=== PATIENT | female | born 1975 | race Caucasian/White ===

== ENCOUNTER 2024-01-30 17:09 | Emergency (ER) | payer OTHER, SELFPAY ==
[2024-01-30 17:14] VITALS: BP 137/95; PULSE 91; RESP 17; TEMP 36.5; O2SAT 98; BMI 19.5
--- NOTE | 2024-01-30 17:35 | CTR_ITS ---
PROCEDURE INFORMATION: Exam: CT Neck With Contrast Exam date and time: 01/30/2024 6:08 PM Age: 48 years old Clinical indication: Other: Right facial/jaw pain and swelling; Additional info: Facial/neck swelling worsening over past week, on abx TECHNIQUE: Imaging protocol: Computed tomography of the neck with contrast. Radiation optimization: All CT scans at this facility use at least one of these dose optimization techniques: automated exposure control; mA and/or kV adjustment per patient size (includes targeted exams where dose is matched to clinical indication); or iterative reconstruction. Contrast material: OMNI 350; Contrast volume: 80 ml; Contrast route: INTRAVENOUS (IV); COMPARISON: No relevant prior studies available. RADIATION DOSE METRICS: Total DLP (mGy-cm): 259.82 FINDINGS: Pharynx: Unremarkable. No significant tonsillar enlargement. Larynx: Unremarkable. Epiglottis is normal. Prevertebral and retropharyngeal spaces: Unremarkable. Salivary glands: Right submandibular gland is enlarged with heterogeneous enhancement. There is adjacent peripherally enhancing complex fluid collection measuring 2.7 x 2.3 cm in the craniocaudad/transverse dimensions consistent with an abscess formation. The abscess formation and adjacent soft tissue inflammatory changes cannot be differentiated from the right sternocleidomastoid muscle. There is overlying soft tissue cellulitis. Thyroid: Normal. No enlarged or calcified nodules. Lymph nodes: There is lymphadenopathy in the right neck soft tissues. Trachea: Visualized trachea is unremarkable. Lungs: Unremarkable as visualized. Bones/joints: Unremarkable. No acute fracture. Soft tissues: See Salivary glands finding. CT/CT neck w con* [id number] IMPRESSION: Right sialadenitis with an adjacent abscess formation, soft tissue cellulitis, and myositis involving the right sternocleidomastoid muscle.
--- NOTE | 2024-01-30 17:40 | ED_ITS ---
Documented by User: APRIL Scruggs 01/30/24 20:45 HPI - Dental/Oral 2 General: Chief complaint: Dental/Oral Stated complaint: tooth pain Time Seen by Provider: 01/30/24 17:23 Source: patient Mode of arrival: ambulatory Limitations: no limitations History of Present Illness: Patient is a 48-year-old female presenting to the emergency department complaining of facial/neck swelling worsening over the past week. Patient notes she was prescribed amoxicillin for presumed dental abscess, however her pain and swelling has only gotten worse. The pain seems to be extending down into the neck, and she now reports some difficulty swallowing as well as her tongue going numb. She notes she has a follow-up with her dentist next week, but due to her worsening symptoms she presented for evaluation. She denies any fevers, respiratory distress, chest pain, or any other symptoms at this time. Patient notes she has been taking her antibiotic as prescribed. Associated symptoms: Denies ear or mastoid pain or fever(s) Review of Systems 2 General: Reports: 10 or more systems reviewed and unremarkable except in HPI and below Const: Denies: fever(s), chills or fatigue Eyes: Denies: change in vision ENMT: Reports: other (Facial/neck swelling and pain, trouble swallowing, tongue numbness); Denies: ear or mastoid pain or nasal discharge Card: Denies: chest pain, palpitations, swelling of feet/ankles or lightheadedness Resp: Denies: dyspnea, productive cough or wheezing GI: Denies: abdominal pain, nausea, vomiting, diarrhea or constipation : Denies: flank pain, difficulty voiding, dysuria or urinary frequency Musc: Denies: neck pain, back pain or joint pain Skin/Breast: Denies: rash Neuro: Denies: headache(s), numbness in extremities or weakness in extremities Physical Exam 2 Const: COMMON NORMALS: patient oriented x3 and no limitations GENERAL APPEARANCE: cooperative, well developed, in distress (From pain) and anxious ORIENTATION/CONSCIOUSNESS: Yes awake, Yes oriented to person, Yes oriented to place and Yes oriented to time HENMT: COMMON NORMALS: normocephalic, atraumatic and hearing grossly normal bilaterally HEAD & SCALP: normocephalic and atraumatic OTHER: Moderate amount of swelling to the right maxillary/mandibular region. This area is exquisitely tender to palpation. Oral examination shows good dentition with no caries or overtly abnormal gingival changes. Eye: COMMON NORMALS: Equal, round and reactive pupils present, EOMs intact bilaterally and conjunctivae normal CONJUNCTIVA: Yes conjunctivae normal P UPIL: Yes Equal, round and reactive pupils present Neck/C-Spine: COMMON NORMALS: no JVD OTHER: Range of motion of the neck limited due to pain. Soft tissue swelling noted to the lateral right neck that is also tender to palpation. No obvious overlying skin changes. No lymphadenopathy. Resp: COMMON NORMALS: normal respiratory effort, No retractions, No use of accessory muscles and clear to auscultation bilaterally AUSCULTATION: clear to auscultation bilaterally Cardio: COMMON NORMALS: no JVD, regular rate, regular rhythm, No clicks present (Cardio), No murmurs present (Cardio) and No rub (Cardio) RATE: r egular rate RHYTHM: regular rhythm Extremity: COMMON NORMALS: normal to inspection, full ROM and capillary refill normal Neuro: COMMON NORMALS: patient oriented x3, moves all extremities, no focal motor deficits and no sensory deficits noted SENSORIUM/ORIENTATION: Yes oriented to person, Yes oriented to place and Yes oriented to time Psych: COMMON NORMALS: mental status grossly normal and Normal thought process present THOUGHT PROCESS: Normal thought process present Skin: COMMON NORMALS: no rashes or lesions noted GENERAL SKIN EXAM: no rashes or lesions noted Course 2 Vital Signs: Vital signs: Vital Signs Temperature 97.7 F 01/30/24 17:14 Pulse Rate 88 01/30/24 20:35 Respiratory Rate 16 01/30/24 20:35 Blood Pressure 143/96 01/30/24 20:35 Pulse Oximetry 95 01/30/24 20:35 Oxygen Delivery Me thod Room Air 01/30/24 20:35 MDM - Dental/Oral Medical Decision Making Patient seen and evaluated in the emergency department due to worsening pain and swelling to the right face with extension into the neck, associated with trouble swallowing and numbness to her posterior tongue. On arrival vitals normal, she has remained stable throughout her ED course. On exam she is exquisitely tender to the touch on the right maxillary and mandibular region, along with the distribution of her SCM on the right side. These areas are also edematous. Oral examination essentially impossible due to patient's trismus, and she states she had decreased intake due to this. CBC CMP unremarkable, no elevation in white count. CT of the neck demonstrated right sialadenitis with abscess, associated with some soft tissue cellulitis and SCM myositis. Patient's pain has been controlled with 2 doses of IV morphine. I spoke with our ENT on-call, who recommends transfer patient as he is unable to drain it at this time. Spoke with oral surgeon at [facility], he states he will consult the patient if patient is excepted to hospitalist services. Patient is excepted under the services of Dr. Casillas and will transfer via ambulance. Patient informed of this and agrees with plan. Lab Data I reviewed the patient's lab results. 01/30/24 18:35 01/30/24 18:[address] 01/30/24 17:35 IMPRESSION: Right sialadenitis with an adjacent abscess formation, soft tissue cellulitis, and myositis involving the right sternocleidomastoid muscle. Laboratory Results WBC 10.27 10^3/uL (3.29-11.43) 01/30/24 18:35 RBC 3.87 10^6/uL (3.85-5.65) 01/30/24 18:35 Hgb 11.90 g/dL (11.27-16.99) 01/30/24 18:35 Hct 34.4 % (36-47) L 01/30/24 18:35 MCV 88.9 fl (85-98) 01/30/24 18:35 MCH 30.7 pg (27-33) 01/30/24 18:35 MCHC 34.6 g/dL (30-55) 01/30/24 18:35 RDW 11.7 % (12.1-15.1) L 01/30/24 18:35 Plt Count 215 10^3/cmm (157-399) 01/30/24 18:35 MPV 9.7 fL (7.4-10.4) 01/30/24 18:35 Neut % (Auto) 78.6 % 01/30/24 18:35 Lymph % (Auto) 13.6 % 01/30/24 18:35 [place] % (Auto) 6.7 % 01/30/24 18:35 Eos % (Auto) 0.6 % 01/30/24 18:35 Baso % (Auto) 0.2 % 01/30/24 18:35 Neut # (Auto) 8.07 10^3/uL (1.8-7.7) H 01/30/24 18:35 Lymph # (Auto) 1.4 10^3/uL (0.8-4.8) 01/30/24 18:35 [place] # (Auto) 0.7 10^3/uL (0.2-0.9) 01/30/24 18:35 Eos # (Auto) 0.1 10^3/uL (0.0-0.8) 01/30/24 18:35 Baso # (Auto) 0.0 10^3/uL (0.0-0.1) 01/30/24 18:35 Nucleated RBC % (auto) 0 % 01/30/24 18:35 Nucleated RBCs # 0.0 /100WBC 01/30/24 18:35 Sodium 136 mmol/L (136-145) 01/30/24 18:35 Potassium 3.6 mmol/L (3.5-5.1) 01/30/24 18:35 Chloride 93 mmol/L (98-107) L 01/30/24 18:35 Carbon Dioxide 29 mmol/L (22-29) 01/30/24 18:35 Anion Gap 17.6 (5-19) 01/30/24 18:35 BUN 6 mg/dL (6-20) 01/30/24 18:35 Creatinine 0.5 mg/dL (0.5-0.9) 01/30/24 18:35 GFR Calculation 131.1 mL/min (90-130) H 01/30/24 18:35 Glucose 100 mg/dL (65-115) 01/30/24 18:35 Calculated Osmolality 280 mOsm/kg (285-295) L 01/30/24 18:35 Calcium 9.4 mg/dL (8.5-10.5) 01/30/24 18:35 Total Bilirubin 0.4 mg/dL (0.15-1.2) 01/30/24 18:35 AST 10 U/L (0-32) 01/30/24 18:35 ALT 8 U/L (0-33) 01/30/24 18:35 Alkaline Phosphatase 105 U/L (35-105) 01/30/24 18:35 Total Protein 7.4 g/dL (6.6-8.7) 01/30/24 18:35 Albumin 3.8 g/dL (3.5-5.2) 01/30/24 18:35 Globulin 3.6 g/dL (1.3-4.6) 01/30/24 18:35 All radiology interpretation(s) finalized by discharge Discharge Plan Discharge Patient Disposition: Xfer Short-Term Hosp Clinical Impression: Facial abscess, Acute bacterial sialadenitis Myositis Qualifiers: Myositis type: infective Myositis location: unspecified site Qualified Code(s): M60.009 - Infective myositis, unspecified site Condition: Stable Coding Level of Care Code ED Outpatient Clerk for Chg Fwd Documented by User: Grayson Ng DO 02/05/24 14:16 HPI - Dental/Oral 2 General: Chief complaint: Dental/Oral Stated complaint: tooth pain Time Seen by Provider: 01/30/24 17:23 Course 2 Vital Signs: Vital signs: Vital Signs Temperature 97.7 F 01/30/24 17:14 Pulse Rate 88 01/30/24 20:35 Respiratory Rate 16 01/30/24 20:35 Blood Pressure 143/96 01/30/24 20:35 Pulse Oximetry 95 01/30/24 20:35 Oxygen Delivery Me thod Room Air 01/30/24 20:35 MDM - Dental/Oral Medical Decision Making Patient seen and evaluated in the emergency department due to worsening pain and swelling to the right face with extension into the neck, associated with trouble swallowing and numbness to her posterior tongue. On arrival vitals normal, she has remained stable throughout her ED course. On exam she is exquisitely tender to the touch on the right maxillary and mandibular region, along with the distribution of her SCM on the right side. These areas are also edematous. Oral examination essentially impossible due to patient's trismus, and she states she had decreased intake due to this. CBC CMP unremarkable, no elevation in white count. CT of the neck demonstrated right sialadenitis with abscess, associated with some soft tissue cellulitis and SCM myositis. Patient's pain has been controlled with 2 doses of IV morphine. I spoke with our ENT on-call, who recommends transfer patient as he is unable to drain it at this time. Spoke with oral surgeon at [facility], he states he will consult the patient if patient is excepted to hospitalist services. Patient is excepted under the services of Dr. Casillas and will transfer via ambulance. Patient informed of this and agrees with plan. Chart reviewed Lab Data 01/30/24 18:35 01/30/24 18:[address] 01/30/24 17:35 IMPRESSION: Right sialadenitis with an adjacent abscess formation, soft tissue cellulitis, and myositis involving the right sternocleidomastoid muscle. Laboratory Results WBC 10.27 10^3/uL (3.29-11.43) 01/30/24 18:35 RBC 3.87 10^6/uL (3.85-5.65) 01/30/24 18:35 Hgb 11.90 g/dL (11.27-16.99) 01/30/24 18:35 Hct 34.4 % (36-47) L 01/30/24 18:35 MCV 88.9 fl (85-98) 01/30/24 18:35 MCH 30.7 pg (27-33) 01/30/24 18:35 MCHC 34.6 g/dL (30-55) 01/30/24 18:35 RDW 11.7 % (12.1-15.1) L 01/30/24 18:35 Plt Count 215 10^3/cmm (157-399) 01/30/24 18:35 MPV 9.7 fL (7.4-10.4) 01/30/24 18:35 Neut % (Auto) 78.6 % 01/30/24 18:35 Lymph % (Auto) 13.6 % 01/30/24 18:35 [place] % (Auto) 6.7 % 01/30/24 18:35 Eos % (Auto) 0.6 % 01/30/24 18:35 Baso % (Auto) 0.2 % 01/30/24 18:35 Neut # (Auto) 8.07 10^3/uL (1.8-7.7) H 01/30/24 18:35 Lymph # (Auto) 1.4 10^3/uL (0.8-4.8) 01/30/24 18:35 [place] # (Auto) 0.7 10^3/uL (0.2-0.9) 01/30/24 18:35 Eos # (Auto) 0.1 10^3/uL (0.0-0.8) 01/30/24 18:35 Baso # (Auto) 0.0 10^3/uL (0.0-0.1) 01/30/24 18:35 Nucleated RBC % (auto) 0 % 01/30/24 18:35 Nucleated RBCs # 0.0 /100WBC 01/30/24 18:35 Sodium 136 mmol/L (136-145) 01/30/24 18:35 Potassium 3.6 mmol/L (3.5-5.1) 01/30/24 18:35 Chloride 93 mmol/L (98-107) L 01/30/24 18:35 Carbon Dioxide 29 mmol/L (22-29) 01/30/24 18:35 Anion Gap 17.6 (5-19) 01/30/24 18:35 BUN 6 mg/dL (6-20) 01/30/24 18:35 Creatinine 0.5 mg/dL (0.5-0.9) 01/30/24 18:35 GFR Calculation 131.1 mL/min (90-130) H 01/30/24 18:35 Glucose 100 mg/dL (65-115) 01/30/24 18:35 Calculated Osmolality 280 mOsm/kg (285-295) L 01/30/24 18:35 Calcium 9.4 mg/dL (8.5-10.5) 01/30/24 18:35 Total Bilirubin 0.4 mg/dL (0.15-1.2) 01/30/24 18:35 AST 10 U/L (0-32) 01/30/24 18:35 ALT 8 U/L (0-33) 01/30/24 18:35 Alkaline Phosphatase 105 U/L (35-105) 01/30/24 18:35 Total Protein 7.4 g/dL (6.6-8.7) 01/30/24 18:35 Albumin 3.8 g/dL (3.5-5.2) 01/30/24 18:35 Globulin 3.6 g/dL (1.3-4.6) 01/30/24 18:35 Discharge Plan Discharge Patient Disposition: Xfer Short-Term Hosp Clinical Impression: Facial abscess, Acute bacterial sialadenitis Myositis Qualifiers: Myositis type: infective Myositis location: unspecified site Qualified Code(s): M60.009 - Infective myositis, unspecified site Condition: Stable Coding Level of Care Code ED Outpatient Clerk for Venita Briggs
[2024-01-30] MEDS: iohexol 350 mg/mL 500 mL Btl (per mL) IV (18:09)
[2024-01-30 18:27] VITALS: RESP 16
[2024-01-30] MEDS: morphine 4 mg/mL SDV 1 mL IVP ×2 (18:27→20:27)
[2024-01-30] MEDS: ondansetron 2 mg/ML SDV 2 mL 4 MG IVP (18:34)
[2024-01-30 18:39] VITALS: BP 137/95; PULSE 85; RESP 16; O2SAT 95
[2024-01-30 18:47] LABS: Basophils % 0.2 %; Eosinophils # 0.1 10^3/uL (0.0-0.8); Eosinophils % 0.6 %; Hematocrit 34.4 % (36-47); Lymphocytes # 1.4 10^3/uL (0.8-4.8); Lymphocytes % 13.6 %; Mean Corpuscular HGB Conc 34.6 g/dL (30-55); Mean Corpuscular Hemoglobin 30.7 pg (27-33); Mean Corpuscular Volume 88.9 fl (85-98); Mean Platelet Volume 9.7 fL (7.4-10.4); Monocytes # 0.7 10^3/uL (0.2-0.9); Monocytes % 6.7 %; Neutrophils # 8.07 10^3/uL (1.8-7.7); Neutrophils % 78.6 %; Nucleated Red Blood Cells % 0 %; Platelet Count 215 10^3/cmm (157-399); Red Blood Count 3.87 10^6/uL (3.85-5.65); Red Cell Distribution Width 11.7 % (12.1-15.1); White Blood Count 10.27 10^3/uL (3.29-11.43)
[2024-01-30 19:01] LABS: Alanine Aminotransferase 8 U/L (0-33); Albumin Level 3.8 g/dL (3.5-5.2); Alkaline Phosphatase 105 U/L (35-105); Anion Gap 17.6 (5-19); Aspartate Amino Transferase 10 U/L (0-32); Blood Urea Nitrogen 6 mg/dL (6-20); Calcium 9.4 mg/dL (8.5-10.5); Carbon Dioxide 29 mmol/L (22-29); Chloride 93 mmol/L (98-107); Creatinine Clr Calc Pharmacy 128.1423; Globulin 3.6 g/dL (1.3-4.6); Glomerular Filtration Rate 131.1 mL/min (90-130); Glucose 100 mg/dL (65-115); Osmolality Calculated 280 mOsm/kg (285-295); Potassium 3.6 mmol/L (3.5-5.1); Sodium 136 mmol/L (136-145); Total Bilirubin 0.4 mg/dL (0.15-1.2); Total Protein 7.4 g/dL (6.6-8.7)
[2024-01-30 20:27] VITALS: RESP 18
[2024-01-30 20:35] VITALS: BP 143/96; PULSE 88; RESP 16; O2SAT 95
[2024-01-30] MEDS: dexamethasone 10 mg/mL INJ 8 MG IVP (20:47)
--- NOTE | 2024-01-30 21:14 | PC.NURSE ---
Report was called to Terrance Rick RN at [facility]. Patient to be transferred to [address] [place] [address]. All questions and concerns were addressed at time of report.
== END 2024-01-30 22:29 | disposition short-term general hospital (02) ==
PROVIDERS: Emergency Provider Physician Assistant
DX: M60.08 Infective myositis, other site (principal); L02.01 Cutaneous abscess of face; K11.21 Acute sialoadenitis
CPT/HCPCS: 36415; 70491; 80053; 85025; 96374; 96375; 96376; 99285; J1100; J2270; J2405; Q9967

== ENCOUNTER 2024-12-13 17:44 | Emergency (ER) | payer SELFPAY ==
[2024-12-13 17:59] VITALS: BP 163/74; PULSE 79; TEMP 36.5; O2SAT 98
--- NOTE | 2024-12-13 18:23 | XRR_ITS ---
PROCEDURE INFORMATION: Exam: XR Chest Exam date and time: 12/13/2024 6:41 PM Age: 49 years old Clinical indication: Other: Weakness TECHNIQUE: Imaging protocol: Radiologic exam of the chest. Views: 1 view. COMPARISON: CT neck w con* [id number] 01/30/2024 6:08 PM FINDINGS: Lungs: Unremarkable. No consolidation. Pleural spaces: Unremarkable. No pleural effusion. No pneumothorax. Heart/Mediastinum: Unremarkable. No cardiomegaly. Bones/joints: Unremarkable. XR/XR chest 1V portable [id number] IMPRESSION: No acute findings.
--- NOTE | 2024-12-13 18:23 | CTR_ITS ---
PROCEDURE INFORMATION: Exam: CT Head Without Contrast Exam date and time: 12/13/2024 6:36 PM Age: 49 years old Clinical indication: Altered mental status/memory loss; Confusion or disorientation; Additional info: Encephalopathy, altered mental status TECHNIQUE: Imaging protocol: Computed tomography of the head without contrast. Radiation optimization: All CT scans at this facility use at least one of these dose optimization techniques: automated exposure control; mA and/or kV adjustment per patient size (includes targeted exams where dose is matched to clinical indication); or iterative reconstruction. COMPARISON: CT neck w con* [id number] 01/30/2024 6:08 PM RADIATION DOSE METRICS: Total DLP (mGy-cm): 1011.78 FINDINGS: Brain: Normal. No hemorrhage. Unremarkable white matter. No mass effect. Cerebral ventricles: No ventriculomegaly. Paranasal sinuses: Visualized sinuses are unremarkable. No fluid levels. Mastoid air cells: Visualized mastoid air cells are well aerated. Bones: Unremarkable. No acute fracture. Soft tissues: Unremarkable. CT/CT head wo con* [id number] IMPRESSION: No acute intracranial abnormality.
[2024-12-13 18:38] VITALS: BP 158/79; PULSE 80; RESP 16; O2SAT 97
[2024-12-13 18:39] LABS: Basophils % 0.3 %; Eosinophils % 0.5 %; Hematocrit 39.2 % (36-47); Lymphocytes # 2.6 10^3/uL (0.8-4.8); Lymphocytes % 34.1 %; Mean Corpuscular HGB Conc 34.2 g/dL (30-55); Mean Corpuscular Hemoglobin 30.2 pg (27-33); Mean Corpuscular Volume 88.5 fl (85-98); Monocytes # 0.5 10^3/uL (0.2-0.9); Neutrophils # 4.53 10^3/uL (1.8-7.7); Nucleated Red Blood Cells % 0 %; Platelet Count 191 10^3/cmm (157-399); Red Blood Count 4.43 10^6/uL (3.85-5.65); White Blood Count 7.68 10^3/uL (3.29-11.43)
--- NOTE | 2024-12-13 18:46 | ECG_ITS ---
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 Measurements Intervals [place] Rate: 70 P: 76 HI: 174 QRS: -15 QRSD: 108 T: 71 QT: 440 QTc: 476 Interpretive Statements SINUS RHYTHM WITH SINUS ARRHYTHMIA SEPTAL MYOCARDIAL INFARCTION , OF INDETERMINATE AGE [40+ ms Q WAVE IN V1/V2] No previous ECG available for comparison Electronically Signed On 12-14-2024 17:55:59 ACQUISITION MARKETING COORDINATOR by Sangita Cosme M.D. [email or web address]
--- NOTE | 2024-12-13 18:46 | ED_ITS ---
HPI - Seizure 2 General: Chief Complaint: Seizure Stated Complaint: seizures Time Seen by Provider: 12/13/24 18:17 History of Present Illness: HPI Narrative: 49-year-old female who arrives to the em ergency room with with a complaint of seizures. Has been going off and on since yesterday. She says she was diagnosed with dystonia by neurologist in [place] at [facility] a while back and they have not had any follow-up. They have had no workup. Apparently it was suggested that they do physical therapy for her hands. 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 He says he just really wants answers. Volume in the room she has an episode where she does shake somewhat. That she stops and her eyes are still open. He says he is been having these episodes where she will go blank and then she will have shaking. Unclear if she is has an official diagnosis of seizures and she is not on any seizure medications. Related Data Previous Rx's ?Medication ?Instructions ?Recorded cefdinir 300 mg capsule 300 mg PO BID 7 days #14 cap s 12/13/24 lorazepam 1 mg tablet (Ativan) 1 mg PO DAILY PRN anxie ty #20 tabs 12/13/24 Allergies Allergy/AdvReac Type Severity Reaction Status Date / Time amoxicillin (From Augmentin) Allergy ADR-Vomitin Verified 12/13/24 18:03 g baclofen Allergy Unknown Verified 12/13/24 18:03 buprenorphine (From Suboxone) Allergy Unknown Verified 12/13/24 18:03 clavulanic acid (From Allergy ADR-Vomitin Verified 12/13/24 18:03 Augmentin) g methocarbamol (From Robaxin) Allergy ALGY-Anaphy Verified 12/13/24 18:03 laxis naloxone (From Suboxone) Allergy Unknown Verified 12/13/24 18:03 Sulfa (Sulfonamide Allergy ALGY-Hives Verified 12/13/24 18:03 Antibiotics) Review of Systems 2 General: Reports: ROS unobtainable due to medical condition and ROS unobtainable due to mental status Physical Exam 2 Narrative: EXAM NARRATIVE: General: Patient's eyes are wide open but she does not respond. Skin: Warm, dry Head: Normocephalic, atraumatic. Neck: Supple, trachea midline. Eye: Extraocular movements are intact. Ears, nose, mouth and throat: Dry oral mucosa. Cardiovascular: Regular rate and rhythm, Normal peripheral perfusion. Respiratory: Lungs are clear to auscultation, respirations are non-labored, breath sounds are equal, Symmetrical chest wall expansion. Gastrointestinal: Soft, Nontender, Non distended, Normal bowel sounds. Musculoskeletal: no deformity. Neurological: No obvious focal neurological deficit observed. Patient has a shaking episode while I am in the room last 15-20 seconds her eyes remain open the whole time. Psychiatric: unable to assess. Course 2 Vital Signs: Vital signs: Vital Signs Temperature 97.7 F 12/13/24 17:59 Pulse Rate 80 12/13/24 18:38 Respiratory Rate 16 12/13/24 18:38 Blood Pressure 158/79 12/13/24 18:38 Pulse Oximetry 97 12/13/24 18:38 Oxygen Delivery Me thod Room Air 12/13/24 18:38 MDM - Seizure MDM Narrative Medical decision making narrative: Medical decision making: Differential diagnosis for this patient with a complaint of seizure like activity would include but not be limited to, and based on the above HPI, review of systems and physical exam: seizure, DT's, alcohol withdrawal, brain malignancy, pseudo-seizure, syncope. Orders placed to evaluate differential diagnosis based on the above differential, HPI and physical exam CT head: No acute intracranial process. no intracranial hemorrhage, no evidence of infarct. no evidence of acute fracture.This was reviewed and interpreted by myself the ER physician. Chest x-ray: No acute process. No infiltrate. No pneumothorax. This was reviewed and interpreted by myself the emergency room physician. I also reviewed the radiology report. Lab Review: Laboratory results were reviewed and interpreted by myself the emergency room physician No leukocytosis. No anemia. No renal failure. Most important to her lactate is not elevated. However she does have a fairly significant urinary tract infection. We discussed this may reduce her threshold for having the seizure- like activity. I reviewed the patient's medical record. Reexamination: And is now alert and able to speak with me. No acute distress at this point. She and her do request something for sleep. She has not slept in several days and I think this may be contributing to her issues. No increased work of breathing. No focal motor deficits. Consultation: I spoke with Dr. Chopra who is on-call for neurology. He agrees with my workup and will follow with the patient as an outpatient. Assessment and plan: Seizure-like activity Urinary tract infection Insomnia ?IV Rocephin and IV Ativan in the emergency room. - Discharged home - Discussed plan with patient. Answered any questions. - Evaluation and treatment of this problem were appropriate in the emergency setting. Lab Data 12/13/24 18:33 12/13/24 18:33 Labs: Radiology Impressions Chest X-Ray 12/13/24 18:23 IMPRESSION: No acute findings. Head CT 12/13/24 18:23 IMPRESSION: No acute intracranial abnormality. Laboratory Results WBC 7.68 10^3/uL (3.29-11.43) 12/13/24 18:33 RBC 4.43 10^6/uL (3.85-5.65) 12/13/24 18:33 Hgb 13.40 g/dL (11.27-16.99) 12/13/24 18:33 Hct 39.2 % (36-47) 12/13/24 18:33 MCV 88.5 fl (85-98) 12/13/24 18:33 MCH 30.2 pg (27-33) 12/13/24 18:33 MCHC 34.2 g/dL (30-55) 12/13/24 18:33 RDW 12.0 % (12.1-15.1) L 12/13/24 18:33 Plt Count 191 10^3/cmm (157-399) 12/13/24 18:33 MPV 10.0 fL (7.4-10.4) 12/13/24 18:33 Neut % (Auto) 59.0 % 12/13/24 18:33 Lymph % (Auto) 34.1 % 12/13/24 18:33 [place] % (Auto) 6.0 % 12/13/24 18:33 Eos % (Auto) 0.5 % 12/13/24 18:33 Baso % (Auto) 0.3 % 12/13/24 18:33 Neut # (Auto) 4.53 10^3/uL (1.8-7.7) 12/13/24 18:33 Lymph # (Auto) 2.6 10^3/uL (0.8-4.8) 12/13/24 18:33 [place] # (Auto) 0.5 10^3/uL (0.2-0.9) 12/13/24 18:33 Eos # (Auto) 0.0 10^3/uL (0.0-0.8) 12/13/24 18:33 Baso # (Auto) 0.0 10^3/uL (0.0-0.1) 12/13/24 18:33 Nucleated RBC % (auto) 0 % 12/13/24 18: Nucleated RBCs # 0.0 /100WBC 12/13/24 18:33 Specimen Type Arterial 12/13/24 19:00 Sample Site Radial, right 12/13/24 19:00 ABG pH 7.45 (7.35-7.45) 12/13/24 19:00 ABG pCO2 35.4 mmHg (35-45) 12/13/24 19:00 ABG pO2 90.2 mmHg (80.0-100.0) 12/13/24 19:00 ABG PO2/FiO2 Ratio 429 12/13/24 19:00 ABG HCO3 24.4 mmol/L (22-26) 12/13/24 19:00 ABG O2 Saturation 98.4 12/13/24 19:00 ABG Base Excess 0.7 mmol/L (-2.0-2.0) 12/13/24 19:00 Jose Raul Test Pos 12/13/24 19:00 A-a O2 Gradient 1.9 mmHg (5-10) L 12/13/24 19:00 Hematocrit 42.7 % (37-47) 12/13/24 19:00 Hgb O2 Saturation 96.4 % (95-100) 12/13/24 19:00 Carboxyhemoglobin 1.0 %THgb (0.4-20.1) 12/13/24 19:00 Methemoglobin 1.1 % (0.4-1.5) 12/13/24 19:00 Total Hemoglobin 13.9 g/dL (12-16) 12/13/24 19:00 Sodium 143.0 mmol/L (131-143) 12/13/24 19:00 Potassium 3.5 mmol/L (3.5-5.0) 12/13/24 19:00 Glucose 84.0 mg/dL (70-115) 12/13/24 19:00 Ionized Calcium 1.2 mmol/L (1.1-1.4) 12/13/24 19:00 O2 Delivery Device Room air 12/13/24 19:00 FiO2 21.0 % 12/13/24 19:00 Ethics Instructor ID Gd 12/13/24 19:00 Sodium 139 mmol/L (136-145) 12/13/24 18:33 Potassium 4.0 mmol/L (3.5-5.1) 12/13/24 18:33 Chloride 100 mmol/L (98-107) 12/13/24 18:33 Carbon Dioxide 23 mmol/L (22-29) 12/13/24 18:33 Anion Gap 20.0 (5-19) H 12/13/24 18:33 BUN 17 mg/dL (6-20) 12/13/24 18:33 Creatinine 0.7 mg/dL (0.5-0.9) 12/13/24 18:33 GFR Calculation 88.6 mL/min (90-130) L 12/13/24 18:33 Glucose 91 mg/dL (65-115) 12/13/24 18:33 Calculated Osmolality 289 mOsm/kg (285-295) 12/13/24 18:33 Lactic Acid 1.3 mmol/L (0.5-2.2) 12/13/24 18:33 Calcium 9.8 mg/dL (8.5-10.5) 12/13/24 18:33 Total Bilirubin 0.5 mg/dL (0.15-1.2) 12/13/24 18:33 AST 18 U/L (0-32) 12/13/24 18:33 ALT 16 U/L (0-33) 12/13/24 18:33 Alkaline Phosphatase 97 U/L (35-105) 12/13/24 18:33 C-Reactive Protein 3.0 mg/L (0.0-4.9) 12/13/24 18:33 Total Protein 7.7 g/dL (6.6-8.7) 12/13/24 18:33 Albumin 4.6 g/dL (3.5-5.2) 12/13/24 18:33 Globulin 3.1 g/dL (1.3-4.6) 12/13/24 18:33 Urine Color Yellow (Yellow) 12/13/24 19:30 Urine Appearance Clear (CLEAR) 12/13/24 19:30 Urine pH 5.5 (5-7) 12/13/24 19:30 Ur Specific [place] 1.029 (1.005-1.030) 12/13/24 19:30 Urine Protein 1+ (Negative) A 12/13/24 19:30 Urine Glucose (UA) Negative (Normal) 12/13/24 19:30 Urine Ketones 2+ (Negative) H 12/13/24 19:30 Urine Blood Negative (Negative) 12/13/24 19:30 Urine Nitrate Positive (Negative) A 12/13/24 19: Urine Bilirubin Negative (Negative) 12/13/24 19: Urine Urobilinogen 1.0 mg/dL (Negative) 12/13/24 19: Ur Leukocyte Esterase 1+ (Negative) A 12/13/24 19:30 Urine RBC 0-2 /hpf (0-2) 12/13/24 19:30 Urine WBC 51-100 /hpf (0-5) H 12/13/24 19:30 Ur Squamous Epith Cells 0-5 /hpf (0-5) 12/13/24 19:30 Amorphous Sediment Not Reportable 12/13/24 19:30 Urine Bacteria None seen /hpf (NONE) 12/13/24 19:30 Hyaline Casts 0.40 /lpf 12/13/24 19:30 Coronavirus (PCR) Negative (Negative) 12/13/24 18:54 Influenza A (PCR) Negative (Negative) 12/13/24 18:54 Influenza Type B (PCR) Negative (Negative) 12/13/24 18:54 RSV (PCR) Negative (Negative) 12/13/24 18:54 All radiology interpretation(s) finalized by discharge Discharge Plan Discharge Patient Disposition: Home Clinical Impression: Generalized seizure, Urinary tract infection Condition: Stable Prescriptions: New lorazepam [Ativan] 1 mg tablet 1 mg PO DAILY PRN (Reason: anxiety) Qty: 20 0RF Rx Instructions: anxiety or seizures cefdinir 300 mg capsule 300 mg PO BID 7 Days Qty: 14 0RF Discharge Orders: Discharge ED (Routine); Ordered 12/13/24 Ordered By: Radha Ramos Referrals: Michael Chopra MD [Physician] - 7-10 days (Please call clinic for a follow-up appointment. I have discussed your case with Dr. Chopra and he will see you in clinic.) Discharge Diet: Usual diet Discharge Activity: Increase activity as tolerated Patient Instructions: Urinary Tract Infection in Women (ED), New-Onset Seizure in Adults (ED), Opioid Safety, Pain Management Activity Restrictions/Additional Instructions: Thank you for choosing [facility] for your healthcare needs today. Please realize this is an emergency room and that we are providing you with a medical screening exam and this may not be complete and all inclusive of all the testing and or work up that you may need to determine your ailment or severity of your illness. You have been screened and evaluated and felt safe for discharge. Health conditions do change or evolve sometimes and as such it is important that you follow up with your Primary Doctor to be re checked, 3-5 days is a general good time frame for follow up. You are always welcome to return to the ED for re assessment if your symptoms are worsening or you have new concerns Print Language: Liberian Coding Level of Care Code ED Fax Machine Repairer for Venita Briggs
[2024-12-13 19:00] LABS: Lactic Sepsis W/Reflex 1.3 mmol/L (0.5-2.2)
[2024-12-13 19:01] LABS: Alanine Aminotransferase 16 U/L (0-33); Albumin Level 4.6 g/dL (3.5-5.2); Alkaline Phosphatase 97 U/L (35-105); Aspartate Amino Transferase 18 U/L (0-32); Blood Urea Nitrogen 17 mg/dL (6-20); Calcium 9.8 mg/dL (8.5-10.5); Carbon Dioxide 23 mmol/L (22-29); Chloride 100 mmol/L (98-107); Globulin 3.1 g/dL (1.3-4.6); Glomerular Filtration Rate 88.6 mL/min (90-130); Glucose 91 mg/dL (65-115); Osmolality Calculated 289 mOsm/kg (285-295); Sodium 139 mmol/L (136-145); Total Bilirubin 0.5 mg/dL (0.15-1.2); Total Protein 7.7 g/dL (6.6-8.7)
[2024-12-13 19:14] LABS: ABG PCO2 35.4 mmHg (35-45); ABG PH Result 7.45 (7.35-7.45); Alveolar-Arterial Oxygen Gradi 1.9 mmHg (5-10); Arterial Blood Gas Hematocrit 42.7 % (37-47); Base Excess ABG 0.7 mmol/L (-2.0-2.0); Blood Gas Allen Test Pos; Blood Gas Operator Identificat GD; Blood Gas Sample Site Radial, right; Blood Gas Sample Type Arterial; HCO3 ABG 24.4 mmol/L (22-26); HGB O2 Sat 96.4 % (95-100); Ionized Calcium Level - ABG 1.2 mmol/L (1.1-1.4); Methemoglobin 1.1 % (0.4-1.5); Oxygen Device ROOM AIR; Oxygen Saturation ABG 98.4; PO2 ABG 90.2 mmHg (80.0-100.0); PO2 FiO2 Ratio Arterial Blood 429; Potassium Level - ABG 3.5 mmol/L (3.5-5.0); Total Hemoglobin 13.9 g/dL (12-16)
[2024-12-13 19:51] LABS: Bilirubin Urine Negative (Negative); Blood Urine Negative (Negative); Glucose Urine UA Negative (Normal); Ketones Urine 2+ (Negative); Leukocyte Esterase Urine 1+ (Negative); Nitrate Urine Positive (Negative); Protein Urine 1+ (Negative); Specific Gravity, Urine 1.029 (1.005-1.030); Urine Appearance Clear (CLEAR); Urine Color Yellow (Yellow); pH Urine 5.5 (5-7)
[2024-12-13 19:54] LABS: Covid PCR NEGATIVE (Negative); Influenza A NEGATIVE (Negative); Influenza B NEGATIVE (Negative); Respiratory Syncytial Virus Ce NEGATIVE (Negative)
[2024-12-13 19:56] LABS: Bacteria Urine None Seen /hpf; RBC Urine 0-2 /hpf (0-2); Squamous Epithelial Cell Urine 0-5 /hpf (0-5); WBC Urine 51-100 /hpf (0-5)
[2024-12-13 20:03] LABS: Add Urine Culture? Yes
[2024-12-13] MEDS: LORazepam 2 mg/mL INJ 1 mL 1 MG IVP (20:57)
[2024-12-13] MEDS: cefTRIAXone 1,000 mg SDV 1000 MG IVP (20:58)
[2024-12-13 21:43] VITALS: BP 141/70; PULSE 73; O2SAT 96
== END 2024-12-13 21:20 | disposition home or self-care (01) ==
PROVIDERS: Emergency Provider Emergency Medicine
DX: G40.89 Other seizures (principal); N39.0 Urinary tract infection, site not specified; Z11.52 Encounter for screening for COVID-19
CPT/HCPCS: 36415; 36600; 70450; 71045; 80051; 80053; 81001; 82330; 82805; 83605; 85025; 86140; 87040; 87086; 87637; 93005; 96374; 96375; 99285; J0696; J2060

== ENCOUNTER → 2025-03-02 12:45 | Outpatient (BNVA) | payer MEDICAID, SELFPAY | PROVIDERS: PCP Physician Assistant Medical; Referring Provider Emergency Medicine; Visit Provider Psychiatry & Neurology Neurology | DX: G40.909 Epilepsy, unspecified, not intractable, without status epilepticus (principal) | CPT/HCPCS: 36415; 82306; 82607; 82746; 83735; 83921; 84439; 84443; 84481 ==

== ENCOUNTER 2025-03-07 09:15 | Emergency (ER) | payer MEDICAID, SELFPAY ==
--- NOTE | 2025-03-07 09:15 | ECG_ITS ---
[facility] Test Date: 2025-03-07 Pat Name: Karena Olson Department: Room: Gender: Female Client Relations Specialist: : 1975 Requested By: Gretchen Bonilla Order Number: [id number] Derek MD: Sangita Cosme M.D. Measurements Intervals [place] Rate: 60 P: 80 MA: 197 QRS: -40 QRSD: 105 T: 68 QT: 433 QTc: 436 Interpretive Statements SINUS RHYTHM LEFT AXIS DEVIATION [QRS AXIS < -30] Compared to ECG 12/13/2024 18:46:41 Left-axis deviation now present Sinus arrhythmia no longer present Myocardial infarct finding no longer present Electronically Signed On 03-08-2025 23:39:41 CDT by Sangita Cosme M.D. [id number]
[2025-03-07 09:16] VITALS: BP 135/70; PULSE 69; RESP 18; TEMP 36.6; O2SAT 100; BMI 23.1
--- NOTE | 2025-03-07 09:20 | ED_ITS ---
HPI - Seizure 2 General: Chief Complaint: Seizure Stated Complaint: seizure Time Seen by Provider: 03/07/25 09:16 Source: patient Mode of arrival: wheelchair Limitations: no limitations History of Present Illness: HPI Narrative: Patient is a 49-year-old female presents to ED today after rapid response was called to MRI for patient having a seizure. Patient states she has been having seizure-like activity over the past 3 to 4 years. 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. She used to receive Botox for these but states that was not beneficial. Patient recently followed up with Dr. Chopra on 03/02. He had ordered outpatient labs, EEG monitoring, as well as MRI imaging which she was attempting to complete this morning when she had a seizure. Patient states she only takes Ativan for her seizures. MD complaint: seizure Onset (ago): minute(s) Description of Episode: tonic-clonic movement -: minutes(s) Witnessed: Yes - by Bystander Trauma: No Seizure History: Yes Place: MRI Possible Precipitating Event: stress (?) Associated symptoms: Deny chest pain, chills, confusion, fever(s), malaise or syncope Treatments prior to arrival: none Related Data Previous Rx's ?Medication ?Instructions ?Recorded lorazepam 1 mg tablet (Ativan) 1 mg PO DAILY PRN anxie ty #20 tabs 12/13/24 folic acid 1 mg tablet 1 mg PO DAILY #30 tabs 03/06 Allergies Allergy/AdvReac Type Severity Reaction Status Date / Time amoxicillin (From Augmentin) Allergy ADR-Vomitin Verified 12/13/24 18:03 g baclofen Allergy Unknown Verified 12/13/24 18:03 buprenorphine (From Suboxone) Allergy Unknown Verified 12/13/24 18:03 clavulanic acid (From Allergy ADR-Vomitin Verified 12/13/24 18:03 Augmentin) g methocarbamol (From Robaxin) Allergy ALGY-Anaphy Verified 12/13/24 18:03 laxis naloxone (From Suboxone) Allergy Unknown Verified 12/13/24 18:03 Sulfa (Sulfonamide Allergy ALGY-Hives Verified 12/13/24 18:03 Antibiotics) Review of Systems 2 Const: Denies: fever(s), chills, body aches, fatigue or malaise Eyes: Denies: change in vision or blurry vision Card: Denies: chest pain, palpitations, irregular heart rhythm, lightheadedness, syncope or dyspnea on exertion Resp: Denies: dyspnea, productive cough or pain on inspiration GI: Denies: abdominal pain, nausea, vomiting, heartburn or diarrhea : Denies: dysuria Musc: Denies: neck pain, back pain, extremity pain, extremity swelling or joint pain Skin/Breast: Denies: rash Neuro: Reports: headache(s) (states this is common following her seizures) and seizure-like activity; Denies: numbness in extremities, weakness in extremities, sensory changes, lack of coordination, difficulty walking, dizziness, confusion or behavioral changes PFSH ED 2 PFSH: Social History Smoking and tobacco/nicotine status: former use of tobacco/nicotine Quit status (tobacco/nicotine): has quit using Alcohol intake: never Substance/Drug Use: never Physical Exam 2 Const: COMMON NORMALS: no acute distress, average body habitus, patient oriented x3, no limitations, healthy appearing, alert and well nourished G ENERAL APPEARANCE: cooperative ORIENTATION/CONSCIOUSNESS: Yes awake, Yes oriented to person, Yes oriented to place and Yes oriented to time OTHER: baseline tremor to head/neck HENMT: COMMON NORMALS: normocephalic and atraumatic HEAD & SCALP: normal to inspection, normocephalic and atraumatic FACE & SINUS: normal facial exam and face symmetric Eye: COMMON NORMALS: Equal, round and reactive pupils present and EOMs intact bilaterally GENERAL EYE: appearance normal, both eyes and all related structures and normal light reflex PUPIL: Yes Equal, round and reactive pupils present DIRECT OPHTHALMOSCOPY: Yes normal light reflex Neck/C-Spine: COMMON NORMALS: full ROM, no lymphadenopathy, supple and no meningeal signs Chest: COMMONS NORMALS: normal inspection of the chest Resp: COMMON NORMALS: normal respiratory effort and clear to auscultation bilaterally AUSCULTATION: clear to auscultation bilaterally Cardio: COMMON NORMALS: regular rate and regular rhythm RATE: regular rate RHYTHM: regular rhythm GI: COMMON NORMALS: Normal to inspection, nondistended, normoactive bowel sounds present, Soft to palpation, non-tender, No hepatosplenomegaly present and no masses PALPATION: Yes Soft to palpation and Yes No hepatosplenomegaly present : COMMON NORMALS: Yes no CVA tenderness BLADDER/KIDNEY EXAM: Yes no CVA tenderness Back/Pelvis: COMMON NORMALS: no CVA tenderness and thoracic and lumbar spine normal to inspection Extremity: COMMON NORMALS: normal to inspection GENERAL: Yes normal exam except as noted Neuro: RUSSEL COMA SCALE: document GCS findings [place] coma scale eye opening: Spontaneous [place] coma scale verbal response: Orientated Russel coma scale motor response: Obey commands Russel coma scale total score: 15 COMMON NORMALS: patient oriented x3, CN's II-XII intact bilaterally, moves all extremities, no focal motor deficits and no sensory deficits noted S ENSORIUM/ORIENTATION: Yes alert, Yes oriented to person, Yes oriented to place and Yes oriented to time MENINGEAL SIGNS: Yes no meningeal signs Skin: COMMON NORMALS: no rashes or lesions noted GENERAL SKIN EXAM: no rashes or lesions noted Course 2 Consultations: Consultation #1: Dr. Chopra-believes these may be anxiety/stress induced; states there is nothing to do emergently from the ED and believes she can continue plan for outpatient work up including labs, EEG, and MRIs Vital Signs: Vital signs: Vital Signs Temperature 97.9 F 03/07/25 09:16 Pulse Rate 67 03/07/25 11:31 Respiratory Rate 18 03/07/25 09:16 Blood Pressure 121/70 03/07/25 11:31 Pulse Oximetry 97 03/07/25 11:31 Oxygen Delivery Me thod Room Air 03/07/25 11:31 MDM - Seizure MDM Narrative Medical decision making narrative: Patient here for seizure-like activity while attempting to have outpatient MRI imaging performed that was ordered by her neurologist, Dr. Chopra. No injury or trauma. She arrives here in no acute distress. She does not appear postictal. Vital signs are stable. Blood work here is unremarkable. Spoke to Dr. Chopra who did not recommend anything further from an emergency standpoint. Recommended she continue outpatient workup. She is scheduled for EEG on . We have tried to contact MRI and several times unsuccessfully to try to reschedule her imaging. She can also contact MRI/central scheduling to try to get this rescheduled. Lab Data 03/07/25 10:17 03/07/25 10:17 Labs: Laboratory Results WBC 5.06 10^3/uL (3.29-11.43) 03/07/25 10:17 RBC 3.90 10^6/uL (3.85-5.65) 03/07/25 10:17 Hgb 11.70 g/dL (11.27-16.99) 03/07/25 10:17 Hct 35.3 % (36-47) L 03/07/25 10:17 MCV 90.5 fl (85-98) 03/07/25 10:17 MCH 30.0 pg (27-33) 03/07/25 10:17 MCHC 33.1 g/dL (30-55) 03/07/25 10:17 RDW 12.0 % (12.1-15.1) L 03/07/25 10:17 Plt Count 158 10^3/cmm (157-399) 03/07/25 10:17 MPV 10.1 fL (7.4-10.4) 03/07/25 10:17 Neut % (Auto) 64.6 % 03/07/25 10:17 Lymph % (Auto) 29.1 % 03/07/25 10:17 [place] % (Auto) 5.1 % 03/07/25 10:17 Eos % (Auto) 0.4 % 03/07/25 10:17 Baso % (Auto) 0.4 % 03/07/25 10:17 Neut # (Auto) 3.27 10^3/uL (1.8-7.7) 03/07/25 10:17 Lymph # (Auto) 1.5 10^3/uL (0.8-4.8) 03/07/25 10:17 [place] # (Auto) 0.3 10^3/uL (0.2-0.9) 03/07/25 10:17 Eos # (Auto) 0.0 10^3/uL (0.0-0.8) 03/07/25 10:17 Baso # (Auto) 0.0 10^3/uL (0.0-0.1) 03/07/25 10:17 Nucleated RBC % (auto) 0 % 03/07/25 10:17 Nucleated RBCs # 0.0 /100WBC 03/07/25 10:17 Sodium 139 mmol/L (136-145) 03/07/25 10:17 Potassium 4.5 mmol/L (3.5-5.1) 03/07/25 10:17 Chloride 104 mmol/L (98-107) 03/07/25 10:17 Carbon Dioxide 25 mmol/L (22-29) 03/07/25 10:17 Anion Gap 14.5 (5-19) 03/07/25 10:17 BUN 14 mg/dL (6-20) 03/07/25 10:17 Creatinine 0.6 mg/dL (0.5-0.9) 03/07/25 10:17 GFR Calculation 105.8 mL/min (90-130) 03/07/25 10:17 Glucose 87 mg/dL (65-115) 03/07/25 10:17 Calculated Osmolality 288 mOsm/kg (285-295) 03/07/25 10:17 Calcium 9.4 mg/dL (8.5-10.5) 03/07/25 10:17 Total Bilirubin 0.2 mg/dL (0.15-1.2) 03/07/25 10:17 AST 19 U/L (0-32) 03/07/25 10:17 ALT 22 U/L (0-33) 03/07/25 10:17 Alkaline Phosphatase 77 U/L (35-105) 03/07/25 10:17 Total Protein 6.7 g/dL (6.6-8.7) 03/07/25 10:17 Albumin 4.1 g/dL (3.5-5.2) 03/07/25 10:17 Globulin 2.6 g/dL (1.3-4.6) 03/07/25 10:17 Urine Color Yellow (Yellow) 03/07/25 10:51 Urine Appearance Clear (CLEAR) 03/07/25 10:51 Urine pH 6.0 (5-7) 03/07/25 10:51 Ur Specific [place] 1.014 (1.005-1.030) 03/07/25 10:51 Urine Protein Negative (Negative) 03/07/25 10:51 Urine Glucose (UA) Negative (Normal) 03/07/25 10:51 Urine Ketones Negative (Negative) 03/07/25 10:51 Urine Blood Negative (Negative) 03/07/25 10:51 Urine Nitrate Negative (Negative) 03/07/25 10:51 Urine Bilirubin Negative (Negative) 03/07/25 10:51 Urine Urobilinogen 0.2 mg/dL (Negative) 03/07/25 10:51 Ur Leukocyte Esterase Trace (Negative) A 03/07/25 10:51 Urine RBC 0-2 /hpf (0-2) 03/07/25 10:51 Urine WBC 0-5 /hpf (0-5) 03/07/25 10:51 Ur Squamous Epith Cells 0-5 /hpf (0-5) 03/07/25 10:51 Amorphous Sediment Not Reportable 03/07/25 10:51 Urine Bacteria None seen /hpf (NONE) 03/07/25 10:51 Hyaline Casts 0-4 /lpf H 03/07/25 10:51 No radiology studies performed this visit Discharge Plan Discharge Patient Disposition: Home Clinical Impression: Seizure, Cervical dystonia Condition: Stable Prescriptions: No Action folic acid 1 mg tablet 1 mg PO DAILY Qty: 30 5RF lorazepam [Ativan] 1 mg tablet 1 mg PO DAILY PRN (Reason: anxiety) Qty: 20 0RF Rx Instructions: anxiety or seizures Discharge Orders: Discharge ED (Routine); Ordered 03/07/25 Ordered By: Gretchen Bonilla Referrals: Sunny Cross PA [Primary Care Provider, Unknown] Activity Restrictions/Additional Instructions: As we discussed, your blood work here was unremarkable. I did speak to Dr. Chopra who recommended continue outpatient testing. Looks like you are scheduled for an E EEG this . We have tried to contact MRI during your emergency department stay but have been unsuccessful. You need to follow-up with MRI/central scheduling to get the imaging you were scheduled for today rescheduled. Recommend you continue to follow-up with Dr. Chopra after testing complete. Print Language: Montserratian Coding Level of Care Code ED Field Contractor for Venita Briggs
[2025-03-07 10:23] VITALS: BP 107/71; PULSE 60; O2SAT 98
[2025-03-07 10:23] LABS: Basophils % 0.4 %; Eosinophils % 0.4 %; Hematocrit 35.3 % (36-47); Lymphocytes # 1.5 10^3/uL (0.8-4.8); Lymphocytes % 29.1 %; Mean Corpuscular HGB Conc 33.1 g/dL (30-55); Mean Corpuscular Volume 90.5 fl (85-98); Mean Platelet Volume 10.1 fL (7.4-10.4); Monocytes # 0.3 10^3/uL (0.2-0.9); Monocytes % 5.1 %; Neutrophils # 3.27 10^3/uL (1.8-7.7); Neutrophils % 64.6 %; Nucleated Red Blood Cells % 0 %; Platelet Count 158 10^3/cmm (157-399); White Blood Count 5.06 10^3/uL (3.29-11.43)
[2025-03-07 10:40] LABS: Alanine Aminotransferase 22 U/L (0-33); Albumin Level 4.1 g/dL (3.5-5.2); Alkaline Phosphatase 77 U/L (35-105); Anion Gap 14.5 (5-19); Aspartate Amino Transferase 19 U/L (0-32); Blood Urea Nitrogen 14 mg/dL (6-20); Calcium 9.4 mg/dL (8.5-10.5); Carbon Dioxide 25 mmol/L (22-29); Chloride 104 mmol/L (98-107); Creatinine Clr Calc Pharmacy 113.0018; Globulin 2.6 g/dL (1.3-4.6); Glomerular Filtration Rate 105.8 mL/min (90-130); Glucose 87 mg/dL (65-115); Osmolality Calculated 288 mOsm/kg (285-295); Potassium 4.5 mmol/L (3.5-5.1); Sodium 139 mmol/L (136-145); Total Bilirubin 0.2 mg/dL (0.15-1.2); Total Protein 6.7 g/dL (6.6-8.7)
[2025-03-07 11:04] LABS: Bilirubin Urine Negative (Negative); Blood Urine Negative (Negative); Glucose Urine UA Negative (Normal); Ketones Urine Negative (Negative); Leukocyte Esterase Urine Trace (Negative); Nitrate Urine Negative (Negative); Protein Urine Negative (Negative); Specific Gravity, Urine 1.014 (1.005-1.030); Urine Appearance Clear (CLEAR); Urine Color Yellow (Yellow); Urobilinogen Urine 0.2 mg/dL (Negative)
[2025-03-07 11:06] LABS: Add Urine Microscopic? YES; Bacteria Urine None Seen /hpf; Hyaline Casts Urine 0-4 /lpf; RBC Urine 0-2 /hpf (0-2); Squamous Epithelial Cell Urine 0-5 /hpf (0-5); WBC Urine 0-5 /hpf (0-5)
[2025-03-07 11:14] LABS: Add Urine Culture? No
[2025-03-07 11:31] VITALS: BP 121/70; PULSE 67; O2SAT 97
[2025-03-07 11:48] VITALS: BP 112/64; PULSE 62; O2SAT 99
== END 2025-03-07 11:49 | disposition home or self-care (01) ==
PROVIDERS: Emergency Provider Physician Assistant; PCP Physician Assistant Medical
DX: R56.9 Unspecified convulsions (principal); G24.3 Spasmodic torticollis; Z87.891 Personal history of nicotine dependence
CPT/HCPCS: 80053; 81001; 85025; 93005; 99284

== ENCOUNTER 2025-03-13 10:39 | Outpatient (CLI) | payer MEDICAID, SELFPAY ==
--- NOTE | 2025-03-13 11:00 | MR_ITS ---
WS: [id number] MRI HEAD WITH CONTRAST TECHNIQUE: Sagittal T1, T2 axial, T2 axial FLAIR, axial susceptibility weighted imaging, axial diffusion weighted images, and coronal T2 images were obtained. Pre and post-T1 axial and post T1 coronal images. ADC and FSPGR images. CLINICAL INFORMATION: G40.909 - Epilepsy, unspecified, not intractable, without... COMPARISON: None. FINDINGS: No evidence of restricted diffusion to suggest acute ischemia. No suspicious intracranial signal abnormalities. Normal posterior fossa. Normal vascular flow voids at the skull base. No extra-axial fluid collections. No evidence of mass or mass effect. Paranasal sinuses are well aerated. No hemosiderin on the susceptibility weighted images. Normal optic chiasm and pituitary infundibulum. Temporal lobes and hippocampal formations are normal in appearance. No evidence of mesial temporal sclerosis. No abnormal gadolinium enhancement. No signal abnormalities in the mesial temporal lobes. MR/MR head wo/w con [id number] IMPRESSION: 1. No evidence of restricted diffusion to suggest acute ischemia. 2. No suspicious intracranial signal abnormalities. 3. Temporal lobes and hippocampal formations are normal in appearance. No sign al abnormalities in the mesial temporal lobes. 4. No abnormal gadolinium enhancement. 5. No hemosiderin.
--- NOTE | 2025-03-13 11:45 | MR_ITS ---
WS: [id number] MRI CERVICAL SPINE NONCONTRAST AND CONTRAST TECHNIQUE: Sagittal T1, T2 and STIR imaging. Axial T2, gradient, and fiesta imaging. CLINICAL INFORMATION: G40.909 - Epilepsy, unspecified, not intractable, without... COMPARISON: None. FINDINGS: Straightening of the normal cervical lordosis. Cord signal is normal. No enhancing lesions in the cervical cord. No visualized demyelinating plaques or lesions in the cervical cord. C2-C3: Mild facet arthropathy. Spinal canal and foramen are patent. C3-C4: Mild disc bulge with endplate ridging. Mild facet arthropathy. Mild LEFT foraminal narrowing. Spinal canal is patent. C4-C5: Disc osteophyte complex with endplate ridging. Moderate LEFT bony foraminal narrowing. Moderate facet arthropathy. C5-C6: Disc osteophyte complex with endplate ridging. Moderate facet arthropathy. Mild bilateral foraminal narrowing. C6-C7: Disc osteophyte complex with endplate ridging. Mild LEFT and no RIGHT foraminal narrowing. C7-T1: Mild LEFT and no significant RIGHT foraminal narrowing. Spinal canal is patent. Visualized brain stem structures: Normal. Prevertebral soft tissues: Normal. MR/MR cervical spine wo/w [id number] IMPRESSION: 1. Straightening of the normal cervical lordosis. Mild spondylitic changes. 2. Cord signal is normal. 3. No demyelinating lesions or T2 hyperintense lesions in the cervical cord. N o significant cord atrophy. 4. No enhancing lesions in the cervical cord. 5. No other acute findings.
[2025-03-13] MEDS: gadobenate dimeglumine 20 mL vial 14 ML IV (12:16)
== END 2025-03-13 10:40 | disposition home or self-care (01) ==
PROVIDERS: PCP Physician Assistant Medical; Visit Provider Psychiatry & Neurology Neurology
DX: G40.909 Epilepsy, unspecified, not intractable, without status epilepticus (principal); R93.7 Abnormal findings on diagnostic imaging of other parts of musculoskeletal system; M47.892 Other spondylosis, cervical region; M50.31 Other cervical disc degeneration, high cervical region; M48.02 Spinal stenosis, cervical region; M25.78 Osteophyte, vertebrae
CPT/HCPCS: 70553; 72156